=== PATIENT | female | born 1960 | race African-American/Black ===

== ENCOUNTER 2019-01-19 08:41 | Day surgery (SDC) | payer OTHER ==
[~2019-01-19] VITALS: Ht 162.6 cm; Wt 102.1 kg
--- NOTE | 2019-01-19 09:30 | NUR ---
MS RN ADMITTING NOTES ADMITTED 58 Y/O FEMALE TO UNIT AMBULATORY ACCOMPANIED BY FAMILY MEMBERS. A/O X4. ABLE TO MAKE NEEDS KNOWN. NOT IN ANY SIGNS OF DISTRESS AT THIS TIME. PATIENT ORIENTED TO UNIT, ROOM AND STAFF. ON RA, BREATHING EVEN AND UNLABORED. V/S TAKEN AND RECORDED. REFUSED SKIN ASSESSMENT. ABDOMEN SOFT, NON-DISTENDED WITH POSITIVE BOWEL SOUNDS ON FOUR QUADRANTS. LUNGS CLEAR ON AUSCULTATION. SAFETY MEASURES INITIATED, BED PLACED IN LOW LOCKED POSITION WITH SIDE RAILS UP X2. CALL LIGHT PLACED WITHIN REACH. WILL CONTINUE TO MONITOR.
[2019-01-19] MEDS ORDERED: LEVO25TA7 PO (09:47)
--- NOTE | 2019-01-19 10:30 | NUR ---
MS RN NOTES PATIENT WAS PICKED UP BY 3 O.R STAFF VIA HOSPITAL BED FOR SURGERY. V/S WNL. ALL CONSENT SIGNED AND CHECKLIST DONE.
[2019-01-19] MEDS ORDERED: MORPHINE SULFATE/PF 10 MG/10ML (1MG/ML) AMPUL ONE (10:34)
[2019-01-19] MEDS ORDERED: BUPIVACAINE MPF 0.5% W/EPI INJ 30 ML VIAL ONE (10:35)
[2019-01-19] MEDS ORDERED: EPINEPHRINE (1:1000) 1 MG/ML AMPUL ONE (10:35)
[2019-01-19] MEDS ORDERED: MIDAZOLAM HCL 2 MG/2ML VIAL ONE (10:39)
[2019-01-19] MEDS ORDERED: SCOPOLAMINE HBR 1 EA PATCH.TD72 TD ONE (10:39)
[2019-01-19] MEDS ORDERED: FENTANYL PF 100MCG/2ML AMPUL ONE (10:40)
[2019-01-19] MEDS ORDERED: BUPIVACAINE 0.25% 75 MG/30 ML VIAL ONE (10:40)
--- NOTE | 2019-01-19 14:11 | NUR ---
MS RN NOTES PATIENT ARRIVED AT UNIT FROM SURGERY, ACCOMPANIED BY 2 O.R STAFF VIA HOSPITAL BED. A/O X4. ON RA, TOLERATING WELL. 3 DRESSING ON LEFT SHOULDER INTACT. NO ACUTE SIGNS OF DISTRESS NOTED AT THIS TIME. PATIENT DENIES ANY PAIN OR DISCOMFORT. V/S WNL. WILL CONTINUE TO MONITOR.
[2019-01-19 16:15] VITALS: BP 155/87
[2019-01-19] MEDS ORDERED: HYDROCODONE/APAP 10/325MG 1 EA TABLET PO PRN (16:30)
--- NOTE | 2019-01-19 18:18 | NUR ---
[facility] ARCHITECT NOTES PATIENT DISCHARGED IN STABLE CONDITION. A/O X4. ABLE TO MAKE NEEDS KNOWN. V/S TAKEN, STABLE AND RECORDED. PATIENT'S IV ACCESS REMOVED AND APPLIED PRESSURE DRESSING. REFUSED SKIN ASSESSMENT. NAME ARM BAND REMOVED. NO BELONGINGS, CHECKED AND SIGNED. PRESCRIPTION FOR PAIN MEDICATION WAS GIVEN TO PATIENT. HEALTH TEACHING/DISCHARGED INSTRUCTIONS GIVEN AND VERBALIZED UNDERSTANDING. PATIENT LEFT UNIT AMBULATORY WITH 2 FAMILY MEMBERS IN NO ACUTE SIGNS OF DISTRESS. CHARGE NURSE AWARE OF DISCHARGED.
== END 2019-01-19 16:00 | disposition home or self-care (01) ==
LOC: DS 08:41 → MED 09:04 → UNDOADMIN 09:04 → DS 16:00 → UNDODISIN 18:28
PROVIDERS: ATTEND Orthopaedic Surgery
DX: M75.42 Impingement syndrome of left shoulder (principal); E03.9 Hypothyroidism, unspecified; E66.01 Morbid (severe) obesity due to excess calories; E78.5 Hyperlipidemia, unspecified; I10 Essential (primary) hypertension; Z82.49 Family history of ischemic heart disease and other diseases of the circulatory system
CPT/HCPCS: 29823; 29824; 87081; 88304; 88311; A4217; A4565; A6209; J0171; J0690; J1100; J2250; J2274; J2704; J3010; J3490 ×2; G0378